=== PATIENT | female | born 1945 | race Two or more races ===

== ENCOUNTER → 2018-01-31 | Outpatient (CLI) | payer MEDICARE ==
--- NOTE | 2018-01-31 13:39 | PCVCIMAG ---
EXAM: BILATERAL LOWER EXTREMITY ARTERIAL DUPLEX INDICATION: Peripheral Arterial Disease. Leg pain. Bilateral great toe ulcers. FINDINGS: Right Leg: Common femoral and profunda femoral arteries are patent. Superficial femoral artery is patent. Increased systolic velocity of 391 cm/s distal popliteal artery consistent with 80% stenosis. The posterior tibial artery is occluded throughout as is the distal peroneal artery. Anterior tibial artery is patent. Left Leg: , Femoral profunda femoral arteries are patent. Superficial femoral artery is patent. Increased systolic velocity proximal popliteal artery of 500 cm/s consistent with 95% stenosis. Mid and distal popliteal artery show blunted arterial waveforms but no additional stenoses. The peroneal artery and posterior tibial artery are occluded. The anterior tibial artery is patent. IMPRESSION: 80% stenosis distal [place] right popliteal artery. Occlusion right posterior tibial artery and distal right peroneal artery. 95% stenosis proximal left popliteal artery. Occlusion of the left peroneal and posterior tibial arteries. LOC:[id number]
== END | disposition home or self-care (01) ==
LOC: PCVCIMAG 16:33
PROVIDERS: ATTEND Nuclear Medicine Nuclear Cardiology
DX: I65.23 Occlusion and stenosis of bilateral carotid arteries (principal); I12.9 Hypertensive chronic kidney disease with stage 1 through stage 4 chronic kidney disease, or unspecified chronic kidney disease; E11.22 Type 2 diabetes mellitus with diabetic chronic kidney disease; N18.6 End stage renal disease; H54.7 Unspecified visual loss; E78.00 Pure hypercholesterolemia, unspecified; B19.20 Unspecified viral hepatitis C without hepatic coma; I73.9 Peripheral vascular disease, unspecified; Z79.899 Other long term (current) drug therapy; Z79.4 Long term (current) use of insulin; Z99.2 Dependence on renal dialysis
CPT/HCPCS: 93925; G0463

== ENCOUNTER → 2018-02-01 | Outpatient (CLI) | payer MEDICARE ==
[~2018-02-01] MED LIST: ASPIRIN 325 MG TABLET ONE; CLOPIDOGREL BISULFATE 75 MG TABLET ONE; DIAZEPAM 10 MG TABLET. ONE; EPTIFIBATIDE BOLUS 2,000 MCG/ML 10ML VIAL. IV ONE; HEPARIN SODIUM 5,000 UNIT/ML VIAL for PCVC. ONE; IODIXANOL 270 MG/ML 100 ML VIAL. ONE; IV NORMAL SALINE 250ML 250 ML ONE; LIDOCAINE 1%/EPI 1:100,000 20 ML VIAL. ONE; MIDAZOLAM HCL/PF 2 MG/2 ML VIAL. ONE; WATER FOR INJECTION,STERILE 20 ML VIAL. IJ ONE; ceFAZolin SODIUM 1 GM VIAL ONE; fentaNYL PF VIAL 100 MCG/2 ML VIAL ONE
--- NOTE | 2018-02-01 19:31 | PCVCINTER ---
EXAM: 1. AORTOGRAM AND BILATERAL LOWER EXTREMITY RUNOFF ANGIOGRAM 2. BILATERAL RENAL ANGIOGRAPHY 3. LEFT POPLITEAL ARTERY ATHERECTOMY AND DRUG COATED BALLOON ANGIOPLASTY. 4. SECONDARY THROMBECTOMY LEFT POPLITEAL ARTERY. INDICATION: Peripheral arterial disease. Nonhealing ulcer left lower extremity. Hypertension. Renal atherosclerosis. No prior catheter based angiographic study is available. A full diagnostic angiogram study is performed today and the decision to intervene is based on this diagnostic study. PROCEDURE: Procedure and risks of angiography intervention is appropriate including limb loss stroke and were discussed with the patient's family and consent obtained. The patient's right groin was prepped in the normal sterile fashion. IV conscious sedation was used throughout procedure with appropriate monitoring from 11:15 AM through 12:30 PM. Ultrasound was used to interrogate the right groin and showed the right common femoral artery to be patent. A permanent spot film was obtained. Under ultrasound guidance access into the right common femoral artery was obtained and a 5 Lao sheath was placed. Through this a 5 Lao flush catheter was placed into the abdominal aorta at the level of the renal arteries and AP aortogram was performed. Catheter was positioned at the aortic bifurcation and both oblique views of the pelvis were obtained. Catheter was positioned into the right external iliac artery and right leg runoff angiography was performed. Catheter was exchanged for a visceral catheter was placed into the right renal arteries and right renal angiograms obtained. Catheter was placed into the the left renal arteries and left renal angiograms were obtained. Catheter was advanced to the level of the left external iliac artery and left leg runoff angiography was obtained. Patient was given 4000 units of heparin. A 6 Lao crossover sheath was placed via the right groin to the level of the left common femoral artery. Atherectomy of the left upper popliteal artery was performed with 2.0 mm [employer] laser atherectomy catheter in the standard fashion. Following atherectomy small areas of thrombus were observed and because of this secondary thrombectomy throughout the left popliteal artery was carried out with mechanical suction thrombectomy catheter in the standard fashion. Minimal debris was removed. Following this drug coated balloon angioplasty of the left upper popliteal artery was carried out with a 4 x 60 [employer] Shavon Shelton [employer] catheter. Follow-up angiogram was performed. Catheters and wires removed. Sheath was removed and hemostasis obtained using the FISH device. No immediate complications. FINDINGS: Aortogram: There is one right and one left renal artery. Mild plaque infrarenal abdominal aorta without significant stenosis. Pelvis: The right and left common and external iliac arteries show satisfactory patency. Both internal iliac arteries are patent. The right and left common femoral and profunda femoral arteries are patent. Right renal artery: No renal artery stenosis. Poor intrarenal flow consistent with chronic renal failure. Left renal artery: No renal artery stenosis. Poor intrarenal flow consistent with chronic renal failure. Right leg: The superficial femoral artery show satisfactory patency throughout. 80% contents eccentric stenosis distal popliteal artery. The peroneal artery and posterior tibial arteries show chronic occlusion throughout with highly diseased plantar arteries. The anterior tibial artery shows good patency and is a normal size vessel throughout to runoff into a moderately diseased dorsalis pedis. Left leg: Scattered plaque in the superficial femoral artery without flow-limiting stenosis. 95% stenosis proximal popliteal artery. Mid and distal popliteal artery are patent. The peroneal artery and posterior tibial arteries are occluded throughout with highly diseased plantar arteries. The anterior tibial artery shows good patency throughout to runoff into an adequate dorsalis pedis. Left popliteal artery: Following procedure as above vessel shows good patency throughout. IMPRESSION: 95% stenosis proximal left popliteal artery was treated as above with good patency restored. 80% stenosis lower right popliteal artery. Patient return next week for correction of this. 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 LOC:[id number]
== END | disposition home or self-care (01) ==
LOC: PCVCINTER 14:23
PROVIDERS: ATTEND Nuclear Medicine Nuclear Cardiology
DX: I70.248 Atherosclerosis of native arteries of left leg with ulceration of other part of lower leg (principal); L97.828 Non-pressure chronic ulcer of other part of left lower leg with other specified severity; I70.1 Atherosclerosis of renal artery; I12.0 Hypertensive chronic kidney disease with stage 5 chronic kidney disease or end stage renal disease; E11.22 Type 2 diabetes mellitus with diabetic chronic kidney disease; N18.6 End stage renal disease; Z99.2 Dependence on renal dialysis; E78.00 Pure hypercholesterolemia, unspecified; Z86.19 Personal history of other infectious and parasitic diseases; D64.9 Anemia, unspecified; H54.7 Unspecified visual loss; Z98.890 Other specified postprocedural states; Z79.899 Other long term (current) drug therapy
CPT/HCPCS: 36252; 37225; 75716; 76937; 99152; 99153; C1725; C1751; C1757; C1760; C1769; C1885; C1894; C2623; J0690; J1327; J1644; J2250; J3010; J3490; J7050; Q9966; J7030